=== PATIENT | male | born 1945 ===

== ENCOUNTER 2018-02-01 07:32 | Emergency (ER) | payer MEDICARE, BC ==
[2018-02-01 07:42] VITALS: BP 126/59
--- NOTE | 2018-02-01 07:54 | UC ---
Throat Pain/Nasal Burak HPI - HPI Summary HPI Summary: hx of URI beginning around jan 23 , since that time cold symptoms have resolved , left with significant nasal congestion, purulent nasal discharge, no fever or chills noted, Normal sense of taste and smell, cough has been present without wheezing or shortness of breath. 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 thumb tendon repair - Social History Alcohol Use: Occasionally Substance Use Type: None Smoking Status (MU): Never Smoked Tobacco Review of Systems Constitutional: Negative Skin: Negative Eyes: Negative ENT: Nasal Discharge, Sinus Congestion Respiratory: Cough Motor: Negative Neurovascular: Negative Musculoskeletal: Arthralgia, Other: - arthritis in wrist Neurological: Negative Psychological: Negative Is Patient Immunocompromised?: No All Other Systems Reviewed And Are Negative: Yes Physical Exam Triage Information Reviewed: Yes Appearance: Thin Vital Signs: Initial Vital Signs Temp 36.6 C 02/01/18 07:39 Pulse 61 02/01/18 07:39 Resp 18 02/01/18 07:39 BP 126/59 02/01/18 07:39 Pulse Ox 99 02/01/18 07:39 Vital Signs Reviewed: Yes Eye Exam: Normal Eyes: Positive: Conjunctiva Clear ENT Exam: Normal ENT: Positive: Normal ENT inspection Dental Exam: Normal Neck exam: Normal Neck: Positive: Supple Respiratory Exam: Normal Respiratory: Positive: Chest non-tender, Lungs clear, Normal breath sounds Cardiovascular: Positive: RRR Abdomen Description: Positive: Nontender Throat Pain/Nasal Course/Dx - Differential Dx/Diagnosis Provider Diagnoses: sinusitis Discharge - Sign-Out/Discharge Documenting (check all that apply): Patient Departure All imaging exams completed and their final reports reviewed: Yes - Discharge Plan Condition: Good Disposition: HOME Prescriptions: Amoxicillin PO (*) [Amoxicillin 500 MG CAP*] 500 mg PO Q12H #14 cap Fluticasone NASAL SPRAY 50MCG* [Flonase NASAL SPRAY 50MCG*] 2 spray BOTH NARES DAILY #1 btl Patient Education Materials: Sinusitis (ED) Referrals: No Primary Care Phys,NOPCP [Primary Care Provider] - - Billing Disposition and Condition Condition: GOOD Disposition: Home
== END 2018-02-01 08:20 | disposition home or self-care (01) ==
LOC: UCEAST 07:32
DX: J32.9 Chronic sinusitis, unspecified (principal)
CPT/HCPCS: 99202; G0463